=== PATIENT | female | born 1965 ===

== ENCOUNTER 2016-09-27 07:45 | Inpatient (IN) | payer OTHER ==
--- NOTE | 2016-09-26 16:55 | Pre-Procedure Note/Attestation ---
Pre-Procedure Note/Attestation Complete Prior to Procedure Planned Procedure: left Procedure Narrative: Left total knee arthroplasty Indications for Procedure Pre-Operative Diagnosis: Left knee arthritis Attestation I attest that I discussed the nature of the procedure; its benefits; risks and complications; and alternatives (and the risks and benefits of such alternatives ), prior to the procedure, with the patient (or the patient's legal retail account representative). I attest that, if there was a reasonable possibility of needing a blood transfusion, the patient (or the patient's legal retail account representative) was given the [facility] standardized written summary, pursuant to the Sean Peter Blood Safety Act ([place] Health and Safety Code # 1645, as amended). I attest that I re-evaluated the patient just prior to the surgery and that there has been no change in the patient's H&P, except as documented below:NONE MANNY GHOSH Sep 26, 2016 16:55
[~2016-09-27] VITALS: Ht 154.9 cm; Wt 67.1 kg
[2016-09-27] VITALS (19 sets, daily range): BP systolic 89–125; BP diastolic 39–83
[~2016-09-27 07:45] MED LIST: CYMBALTA30 MG ORAL; GABAPENTIN300 MG ORAL; GLUCOSAMINE PO; MULTIVITAMINS1 EAC2 ORAL; ceFAZolin 1gm/50ml Premix 50 ML IV ONE; celeBREX 200mg Cap **SURGERY PATIENTS ONLY ORAL ONE; oxyCONTIN 20mg tab ORAL ONE
[2016-09-27] MEDS ORDERED: Lidocaine 1% MPF 10mg/ml 5ml ONE (08:30)
[2016-09-27] MEDS ORDERED: LR 1000ml ONE (08:30)
[2016-09-27] MEDS ORDERED: Sterile Water For Irrig 2000ml IRRIG ONE (08:30)
[2016-09-27] MEDS ORDERED: Alfentanil 2ml Inj ONE (08:30)
[2016-09-27] MEDS ORDERED: Midazolam 2mg/2ml Inj ONE (08:30)
[2016-09-27] MEDS ORDERED: NS Irrig 1000ml ONE (08:30)
[2016-09-27] MEDS ORDERED: Dexamethasone 4mg/ml vial ONE (08:30)
[2016-09-27] MEDS ORDERED: Propofol 10mg/ml 20ml IV ONE (08:30)
[2016-09-27] MEDS ORDERED: NS Irrig 2000ml IRRIG ONE (08:40)
[2016-09-27] MEDS ORDERED: Bupivacaine 0.5% Inj 30 ml vial INJ ONE (08:40)
[2016-09-27] MEDS ORDERED: Morphine Sulfate PF 10 ML ONE (08:40)
[2016-09-27] MEDS ORDERED: Bacitracin 50000 Units Vial ONE (08:41)
[2016-09-27] MEDS ORDERED: Ropivacaine 5mg/ml Vial 20ml INJ ONE (08:41)
--- NOTE | 2016-09-27 09:31 | Anethesia Preoperative Eval ---
Anesthesia Pre-op PMH/ROS General Date of Evaluation: Sep 27, 2016 Time of Evaluation: 08:31 Anesthesiologist: Charleen ASA Score: ASA 2 Mallampati Score Class I : Soft palate, uvula, fauces, pillars visible Class II: Soft palate, uvula, fauces visible Class III: Soft palate, base of uvula visible Class IV: Only hard plate visible Mallampati Classification: Class II Surgeon: Mikaela Diagnosis: L Knee Pain Surgical Procedure: L Total Knee Arthroplasty Anesthesia History: none Family History: no anesthesia problems Allergies: Coded Allergies: No Known Allergies (Unverified , 09/22/16) Medications: see eMAR Past Medical History Hematology/Immune: Reports: anemia PSxH Narrative: VINI, CSx2, L Knee Arthroscopy Anesthesia Pre-op Phys. Exam Physician Exam Last Vital Signs Date Time Temp Pulse Resp B/P Pulse Ox O2 Delivery O2 Flow Rate FiO2 09/27/16 08:15 98.2 57 16 107/57 100 Room Air Constitutional: NAD Neurologic: CN 2-12 intact Cardiovascular: RRR Respiratory: CTA Gastrointestinal: S/NT/ND Airway Exam Mallampati Score: Class II MO: full ROM: limited Teeth: intact Anesthesia Pre-op A/P Risk Assessment & Plan Assessment: ASA 2 Plan: GA, BIS, Spinal, L Adductor Block Status Change Before Surgery: No Pre-Antibiotics Dru Grams Ancef IV Given Within 1 Hr of Incision: Yes Time Given: 08:53 Abner Villaseñor MD Sep 27, 2016 09:31
[2016-09-27] MEDS ORDERED: LR 1000ml 1,000 ML IVLG SCH (09:33)
--- NOTE | 2016-09-27 09:33 | Immediate Post-Op Evaluation ---
Immediate Post-Op Evalulation Immediate Post-Op Evalulation Procedure: L Total Knee Arthroplasty Date of Evaluation: Sep 27, 2016 Time of Evaluation: 11:58 IV Fluids: 1000 LR Blood Products: 0 Estimated Blood Loss: 50 Urinary Output: 100 Blood Pressure Systolic: 99 Blood Pressure Diastolic: 43 Pulse Rate: 80 Respiratory Rate: 16 O2 Sat by Pulse Oximetry: 100 Temperature (Fahrenheit): 98.3 Pain Score (1-10): 0 Nausea: No Vomiting: No Complications 0 Patient Status: awake, reacts, patent, extubated, none Hydration Status: adequate Dru Grams Ancef IV Given Within 1 Hr of Incision: Yes Time Given: 08:53 Abner Villaseñor MD Sep 27, 2016 09:33
[2016-09-27] MEDS ORDERED: Oxycodone/Acetaminophen 5-325 ORAL PRN (09:45)
[2016-09-27] MEDS ORDERED: fentaNYL 100 mcg/2 mL IV PRN (09:45)
[2016-09-27] MEDS ORDERED: Meperidine 25mg/ml Inj IV PRN (09:45)
[2016-09-27] MEDS ORDERED: Norco 5mg/325mg tab ORAL PRN ×2 (09:45)
[2016-09-27] MEDS ORDERED: HYDROmorphone 1mg/ml Carpuject SUBQ PRN (09:45)
[2016-09-27] MEDS ORDERED: Norco 7.5mg/325mg tab ORAL PRN ×2 (09:45)
[2016-09-27] MEDS ORDERED: Atropine Inj 1mg/10ml Syr IV PRN (09:45)
[2016-09-27] MEDS ORDERED: Ketorolac 60mg Inj IV PRN (09:45)
[2016-09-27] MEDS ORDERED: Metoclopramide 10mg/2ml Inj IVP PRN (09:45)
[2016-09-27] MEDS ORDERED: Midazolam 2mg/2ml Inj IVP PRN (09:45)
[2016-09-27] MEDS ORDERED: LORazepam Inj 2mg/ml 1ml IV PRN (09:45)
[2016-09-27] MEDS ORDERED: Ketorolac 30mg Inj IV PRN (09:45)
[2016-09-27] MEDS ORDERED: Milk of Magnesia 30ml Ud ORAL PRN (09:45)
[2016-09-27] MEDS ORDERED: Hydromorphone 0.5mg/0.5ml inj IVP PRN (09:45)
[2016-09-27] MEDS ORDERED: DiphenhydrAMINE 50mg/ml Inj IVP PRN (09:45)
[2016-09-27] MEDS ORDERED: Labetalol 5mg/ml 20ml vial IV PRN (09:45)
--- NOTE | 2016-09-27 11:32 | Brief Operative Note ---
Immediate Post Operative Note Operative Note Chief Complaint: left knee pain Pre-op Diagnosis: left knee arthritis Procedure: left TKA Post-op Diagnosis: same as pre-op Findings: consistent w/pre-op dx studies Surgeon: md Mikaela Surgical Orderly: geo manuel Anesthesiologist: md stephanie Anesthesia: general Specimen: yes Complications: none Condition: stable Estimated Blood Loss: minimal Drains: none Implant(s) used?: Yes - PAWEL Escalona Sep 27, 2016 11:32
--- NOTE | 2016-09-27 14:31 | Diagnostic Imaging Report ---
Indications: Postoperative Technique: Two views of the knee Comparison:None Findings: Two postoperative views of the left knee demonstrate total knee arthroplasty, good anatomic alignment of the prosthesis. . There is postsurgical soft tissue air. Impression: Postoperative left knee, no unusual features.
[2016-09-27] MEDS: D5 1/2NS w/KCl 20mEq 1,000 ML IV SCH (17:04)
[2016-09-27] MEDS: Docusate 100mg cap ORAL SCH (17:04)
[2016-09-27] MEDS: ceFAZolin sod 1 GM in D5W 55 ML IV SCH (17:06)
[2016-09-27] MEDS: oxyCONTIN 20mg tab ORAL SCH (20:55)
[2016-09-27] MEDS: Enoxaparin 30mg Inj SUBQ SCH (20:59)
--- NOTE | 2016-09-27 23:48 | Operative Note - Dictated ---
DATE OF OPERATION: 09/27/2016 PREOPERATIVE DIAGNOSIS: Left knee end-stage arthritis. POSTOPERATIVE DIAGNOSIS: Left knee end-stage arthritis. PROCEDURE: Left total knee arthroplasty using the [employer] system, size 7 femur, size E tibia, 32 mm patellar all poly cemented component, and 12 mm tibial insert. SURGEON: Kaden Al M.D. REGISTRAR NURSES' REGISTRY: Tammie Moise PA-C. ANESTHESIOLOGIST: Abner Villaseñor M.D. ANESTHESIA: Spinal anesthesia combined with adductor block for postoperative pain management. ESTIMATED BLOOD LOSS: Less than 100 mL. TOURNIQUET TIME: 75 minutes. COMPLICATIONS: None. BRIEF HISTORY: The patient is a pleasant 51-year-old female, who has had ongoing left knee end-stage arthritis. She failed nonoperative treatment and after full discussion of risks and benefits of surgery and complications associated with it including infection, bleeding, neurovascular complication, possibility of continued pain, possibility of need for further surgery, possibility of DVT and PE, possibility of infection requiring resection arthroplasty, and certainly need for revision total knee arthroplasty down the line, she opted for surgical treatment as described above. OPERATIVE PROCEDURE: The patient was brought to the operating table and was placed supine. All pressure points were well padded. Spinal anesthesia was induced and adductor block was performed. The left knee was prepped and draped in usual sterile fashion and was exsanguinated. Tourniquet was inflated to 275 mmHg. Standard anterior approach to the knee was undertaken. Medial parapatellar arthrotomy was performed and the medial releases were performed. The patella was everted. The knee was flexed. ACL and PCL were released. Intramedullary access into the femur was obtained, and using intramedullary guide, a distal femoral cut was performed with 5 degrees of valgus. Subsequently, measurements were made and size 7 appeared to be the right size for the femur. The cutting block was placed in about 3 degrees of external rotation. The anterior, posterior, and chamfer cuts were performed. The knee component was lateralized slightly and peg holes were drilled. The femoral prosthesis was fitting perfectly onto the cuts. Once this was completed, care was given to the tibial side. Appropriate retractors were placed in medially, laterally, and posteriorly and knee was flexed. The patellar tendon was protected. The anatomical axis was re-created and 10 mm was taken off the least involved side, which was posteromedial. This provided excellent cut. Flexion and extension gap was checked and appeared to be equal. The posterior slope was created. Once this was completed, the sizing was performed and size E appeared to be the right size. Therefore, the size E was placed in about 3 degrees of external rotation and the central stem was punched without any complication. At this point, the femoral component, tibial component, and a 10 mm poly was inserted. There was a little hyperextension or looseness of the knee. At this point, the poly was changed to 12 mm. This provided excellent range of motion with full extension, no laxity, full flexion, excellent stability at 0, 30 degrees, 45 degrees, and 90 degrees to varus and valgus stressing and anterior and posterior drawer. Therefore, care was given to the patella. The patella was everted. There were multiple osteophytes and these were removed. At this point, thickness of the patella was measured to be 25 mm. A freehand cut was performed and 14 mm patella was remaining. The measurements were made and 32 mm appeared to be the right size. The peg holes were drilled and a trial component was applied. The range of motion of the knee was checked and patellofemoral tracking was checked and appeared to be perfect. At this point, all wounds were thoroughly irrigated using copious amount of fluid. All trial components were removed. The femoral entry was then plugged using a bone plug. The Simpulse irrigation was used to irrigate the area completely. At this point, cement was mixed and the tibial component, femoral component, and patellar component were cemented without any complication. A 12 mm poly insert was then trialed and appeared to be the correct size with good range of motion, good stability, and good patellofemoral tracking as described previously. Therefore, the actual 12 mm poly was then applied and locked in without any complications. The knee was reduced and range of motion and stability was checked and appeared to be perfect. At this point, all wounds were thoroughly irrigated using copious amount of fluid. The tourniquet was deflated. All bleeders were stopped. The extensor mechanism was closed using #1 Vicryl suture. Subcutaneous tissue was closed using 2-0 Vicryl suture. The skin was closed using 3-0 Monocryl suture and Dermabond. Sterile dressing was applied. The patient was placed in a knee immobilizer and was taken to recovery room in stable condition. All instrument counts and lap counts were correct. Kaden Al M.D. DR: Isaias JOB#: [id number] CC:
[2016-09-28] VITALS: BP 94/57
[2016-09-28] MEDS: ceFAZolin sod 1 GM in D5W 55 ML IV SCH (00:35)
[2016-09-28] MEDS: D5 1/2NS w/KCl 20mEq 1,000 ML IV SCH ×2 (03:59→19:10)
[2016-09-28 04:00] VITALS: BP 106/51
[2016-09-28 07:10] LABS: BASOPHILS % (AUTO) 0.2 % (0.0-2.0); EOSINOPHILS % (AUTO) 0.1 % (0.0-3.0); LYMPHOCYTES % (AUTO) 10.9 % (20.0-45.0); MEAN CORPUSCULAR HEMOGLOBIN 32.3 PG (27.0-31.0); MEAN CORPUSCULAR HGB CONC 36.1 G/DL (32.0-36.0); MEAN CORPUSCULAR VOLUME 89 FL (80-99); MEAN PLATELET VOLUME 7.9 FL (6.5-10.1); MONOCYTES % (AUTO) 9.9 % (1.0-10.0); PLATELET COUNT 210 K/UL (150-450); RED BLOOD COUNT 3.37 M/UL (4.20-5.40); RED CELL DISTRIBUTION WIDTH 11.6 % (11.6-14.8); WHITE BLOOD COUNT 11.5 K/UL (4.8-10.8)
[2016-09-28 08:00] VITALS: BP 101/53
--- NOTE | 2016-09-28 08:05 | Orthopedic Progress Note ---
Orthopedic - Progress Note Subjective Symptoms: improved - some nausea Objective Vital Signs Laboratory Tests Test 09/28/16 05:10 White Blood Count 11.5 K/UL (4.8-10.8) H Red Blood Count 3.37 M/UL (4.20-5.40) L Hemoglobin 10.9 G/DL (12.0-16.0) L Hematocrit 30.1 % (37.0-47.0) L Mean Corpuscular Volume 89 FL (80-99) Mean Corpuscular Hemoglobin 32.3 PG (27.0-31.0) H Mean Corpuscular Hemoglobin Concent 36.1 G/DL (32.0-36.0) H Red Cell Distribution Width 11.6 % (11.6-14.8) Platelet Count 210 K/UL (150-450) Mean Platelet Volume 7.9 FL (6.5-10.1) Neutrophils (%) (Auto) 79.0 % (45.0-75.0) H Lymphocytes (%) (Auto) 10.9 % (20.0-45.0) L Monocytes (%) (Auto) 9.9 % (1.0-10.0) Eosinophils (%) (Auto) 0.1 % (0.0-3.0) Basophils (%) (Auto) 0.2 % (0.0-2.0) Last 24 Hour Vital Signs Date Time Temp Pulse Resp B/P Pulse Ox O2 Delivery O2 Flow Rate FiO2 09/28/16 04:00 98.2 64 18 106/51 98 Room Air 09/28/16 00:00 97.9 51 18 94/57 99 Room Air 09/27/16 20:30 97.2 59 20 97/67 100 Room Air 09/27/16 20:00 97.2 54 18 95/48 Room Air 09/27/16 16:09 Nasal Cannula 3.0 32 09/27/16 16:09 99 Nasal Cannula 3.0 32 09/27/16 16:00 97.3 51 17 92/62 100 Room Air 09/27/16 14:45 97.5 88 16 125/83 100 Nasal Cannula 3.0 09/27/16 14:30 97.2 53 16 101/48 100 Nasal Cannula 3.0 09/27/16 14:15 97.2 61 15 110/55 100 Nasal Cannula 3.0 2/7/17 14:00 97.5 55 15 115/63 100 Nasal Cannula 3.0 09/27/16 13:45 97.7 64 14 103/39 100 Nasal Cannula 3.0 09/27/16 13:20 98.6 53 13 98/50 100 Nasal Cannula 3.0 09/27/16 13:05 54 12 92/43 100 Nasal Cannula 3.0 09/27/16 12:50 56 15 91/45 100 Simple Mask 6.0 09/27/16 12:40 56 15 91/44 100 Simple Mask 6.0 09/27/16 12:29 62 17 92/46 100 Simple Mask 6.0 09/27/16 12:20 56 12 91/44 98 Simple Mask 6.0 09/27/16 12:10 59 13 89/46 98 Simple Mask 6.0 09/27/16 11:57 66 16 96/41 98 Simple Mask 6.0 09/27/16 11:52 66 18 98/46 98 Simple Mask 6.0 09/27/16 11:49 80 16 100 09/27/16 11:47 98.3 80 20 99/43 98 Simple Mask 6.0 09/27/16 08:15 98.2 57 16 107/57 100 Room Air I&O Intake and Output 09/27/16 09/28/16 19:00 07:00 Intake Total 1635 ml 2945 ml Output Total 350 ml 2975 ml Balance 1285 ml -30 ml Intake Oral 380 ml 2120 ml IV Total 1255 ml 825 ml Output Urine Total 200 ml 2225 ml Emesis 100 ml 750 ml Estimated Blood Loss 50 ml # Voids 51 Wound: clean, dry, intact Drains: none Neuro Status: normal Vascular Status: normal Additional Comments xray excellent Assessment Post-op Diagnosis POD 1 Procedure Performed left TKA Plan Plan: PT, pain management, discharge to home - on monday with services and DME PAWEL ATKINSON Sep 28, 2016 08:05
[2016-09-28] MEDS: oxyCONTIN 20mg tab ORAL SCH ×2 (08:43→20:52)
[2016-09-28] MEDS: celeBREX 200mg Cap **SURGERY PATIENTS ONLY ORAL SCH (08:43)
[2016-09-28] MEDS: Docusate 100mg cap ORAL SCH ×3 (08:43→18:00)
[2016-09-28] MEDS: Enoxaparin 30mg Inj SUBQ SCH ×2 (08:48→21:00)
--- NOTE | 2016-09-28 09:16 | General Progress Note ---
Assessment/Plan Status Narrative s/p total knee replacement doing well start cpm soon PT Ot DV TPROPHYAXXIS paincontrol will need perioperative antibiotic prophgyalxis Subjective Date patient seen: Sep 28, 2016 Time patient seen: 09:14 Constitutional: Reports: no symptoms HEENT: Reports: no symptoms Cardiovascular: Reports: no symptoms Respiratory: Reports: no symptoms Gastrointestinal/Abdominal: Reports: no symptoms Allergies: Coded Allergies: Honey Bee (Verified Allergy, Unknown, 09/28/16) Objective Last 24 Hour Vital Signs Date Time Temp Pulse Resp B/P Pulse Ox O2 Delivery O2 Flow Rate FiO2 09/28/16 04:00 98.2 64 18 106/51 98 Room Air 09/28/16 00:00 97.9 51 18 94/57 99 Room Air 09/27/16 20:30 97.2 59 20 97/67 100 Room Air 09/27/16 20:00 97.2 54 18 95/48 Room Air 09/27/16 16:09 Nasal Cannula 3.0 32 09/27/16 16:09 99 Nasal Cannula 3.0 32 09/27/16 16:00 97.3 51 17 92/62 100 Room Air 09/27/16 14:45 97.5 88 16 125/83 100 Nasal Cannula 3.0 09/27/16 14:30 97.2 53 16 101/48 100 Nasal Cannula 3.0 09/27/16 14:15 97.2 61 15 110/55 100 Nasal Cannula 3.0 09/27/16 14:00 97.5 55 15 115/63 100 Nasal Cannula 3.0 09/27/16 13:45 97.7 64 14 103/39 100 Nasal Cannula 3.0 09/27/16 13:20 98.6 53 13 98/50 100 Nasal Cannula 3.0 09/27/16 13:05 54 12 92/43 100 Nasal Cannula 3.0 09/27/16 12:50 56 15 91/45 100 Simple Mask 6.0 09/27/16 12:40 56 15 91/44 100 Simple Mask 6.0 09/27/16 12:29 62 17 92/46 100 Simple Mask 6.0 09/27/16 12:20 56 12 91/44 98 Simple Mask 6.0 09/27/16 12:10 59 13 89/46 98 Simple Mask 6.0 09/27/16 11:57 66 16 96/41 98 Simple Mask 6.0 09/27/16 11:52 66 18 98/46 98 Simple Mask 6.0 09/27/16 11:49 80 16 100 09/27/16 11:47 98.3 80 20 99/43 98 Simple Mask 6.0 Intake and Output 09/27/16 09/28/16 19:00 07:00 Intake Total 1635 ml 2945 ml Output Total 350 ml 2975 ml Balance 1285 ml -30 ml Intake Oral 380 ml 2120 ml IV Total 1255 ml 825 ml Output Urine Total 200 ml 2225 ml Emesis 100 ml 750 ml Estimated Blood Loss 50 ml # Voids 51 Laboratory Tests 09/28/16 05:10: White Blood Count 11.5H, Red Blood Count 3.37L, Hemoglobin 10.9L, Hematocrit 30.1L, Mean Corpuscular Volume 89, Mean Corpuscular Hemoglobin 32.3H, Mean Corpuscular Hemoglobin Concent 36.1H, Red Cell Distribution Width 11.6, Platelet Count 210, Mean Platelet Volume 7.9, Neutrophils (%) (Auto) 79.0H, Lymphocytes (%) (Auto) 10.9L, Monocytes (%) (Auto) 9.9, Eosinophils (%) (Auto) 0.1, Basophils (%) (Auto) 0.2 Height (Feet): 5 Height (Inches): 1.00 Weight (Pounds): 148 General Appearance: WD/WN EENT: PERRL/EOMI Cardiovascular: no JVD Respiratory/Chest: lungs clear Abdomen: soft MALINI CARDENAS Sep 28, 2016 09:16
[2016-09-28 12:00] VITALS: BP 95/45
--- NOTE | 2016-09-28 14:10 | 48 Hour Post Anesthesia Eval ---
Post Anesthesia Evaluation Procedure: L Total Knee Arthroplasty Date of Evaluation: Sep 28, 2016 Time of Evaluation: 14:09 Blood Pressure Systolic: 97 0: 60 Pulse Rate: 76 Respiratory Rate: 20 Temperature (Fahrenheit): 98 O2 Sat by Pulse Oximetry: 98 Airway: patent Nausea: No Vomiting: No Pain Intensity: 2 Hydration Status: adequate Cardiopulmonary Status: stanle Mental Status/LOC: patient returned to baseline Follow-up Care/Observations: na Post-Anesthesia Complications: na Follow-up care needed: N/A JOSE RODRIGEZ M.D. Sep 28, 2016 14:10
[2016-09-28 16:00] VITALS: BP 108/47
[2016-09-28 20:00] VITALS: BP 103/62
[2016-09-28] MEDS: DULoxetine 30mg cap ORAL SCH (20:51)
[2016-09-29] VITALS (7 sets, daily range): BP systolic 89–115; BP diastolic 47–57
[2016-09-29 07:26] LABS: BASOPHILS % (AUTO) 0.4 % (0.0-2.0); EOSINOPHILS % (AUTO) 0.9 % (0.0-3.0); LYMPHOCYTES % (AUTO) 15.3 % (20.0-45.0); MEAN CORPUSCULAR HEMOGLOBIN 30.8 PG (27.0-31.0); MEAN CORPUSCULAR HGB CONC 34.3 G/DL (32.0-36.0); MEAN CORPUSCULAR VOLUME 90 FL (80-99); MEAN PLATELET VOLUME 7.4 FL (6.5-10.1); MONOCYTES % (AUTO) 12.1 % (1.0-10.0); NEUTROPHILS % (AUTO) 71.3 % (45.0-75.0); PLATELET COUNT 180 K/UL (150-450); RED BLOOD COUNT 2.94 M/UL (4.20-5.40); RED CELL DISTRIBUTION WIDTH 11.9 % (11.6-14.8); WHITE BLOOD COUNT 7.3 K/UL (4.8-10.8)
--- NOTE | 2016-09-29 07:30 | Orthopedic Progress Note ---
Orthopedic - Progress Note Subjective Symptoms: c/o post-op knee pain Additional Comments Slow with recovery. Want to be discharge tomorrow. Objective Vital Signs Last 24 Hour Vital Signs Date Time Temp Pulse Resp B/P Pulse Ox O2 Delivery O2 Flow Rate FiO2 09/29/16 04:00 99.0 80 18 104/57 99 Room Air 09/29/16 00:00 99.0 83 18 100/50 98 Room Air 09/28/16 20:00 98.2 80 20 103/62 98 Nasal Cannula 09/28/16 19:12 98 Nasal Cannula 2.0 28 09/28/16 19:12 Nasal Cannula 2.0 28 09/28/16 16:00 98.2 63 20 108/47 99 Room Air 09/28/16 14:10 76 20 98 09/28/16 12:43 98.2 09/28/16 12:00 98.4 66 20 95/45 99 Room Air 09/28/16 08:00 97.9 64 18 101/53 99 Room Air I&O Intake and Output 09/28/16 09/29/16 19:00 07:00 Intake Total 2365 ml 765 ml Output Total 800 ml Balance 1565 ml 765 ml Intake Oral 1540 ml 240 ml IV Total 825 ml 525 ml Output Urine Total 550 ml Emesis 250 ml # Voids 3 Wound: clean, dry, intact Drains: hemovac Neuro Status: normal Assessment Post-op Diagnosis S/P TKA Plan Plan: PT, pain management, discharge plan Additional Comments Ok to go home if stable with home health. If unsafe per PT, then may need Rehab. MANNY GHOSH Sep 29, 2016 07:30
[2016-09-29] MEDS: D5 1/2NS w/KCl 20mEq 1,000 ML IV SCH (08:00)
[2016-09-29] MEDS: Docusate 100mg cap ORAL SCH ×3 (09:09→17:59)
[2016-09-29] MEDS: oxyCONTIN 20mg tab ORAL SCH ×2 (09:09→21:00)
[2016-09-29] MEDS: celeBREX 200mg Cap **SURGERY PATIENTS ONLY ORAL SCH (09:10)
[2016-09-29] MEDS: Enoxaparin 30mg Inj SUBQ SCH ×2 (10:24→22:46)
[2016-09-29] MEDS: DULoxetine 30mg cap ORAL SCH (20:59)
[2016-09-30 00:56] VITALS: BP 93/52
[2016-09-30 04:00] VITALS: BP 98/60
[2016-09-30 04:43] LABS: BASOPHILS % (AUTO) 0.8 % (0.0-2.0); EOSINOPHILS % (AUTO) 2.9 % (0.0-3.0); LYMPHOCYTES % (AUTO) 24.3 % (20.0-45.0); MEAN CORPUSCULAR HEMOGLOBIN 30.4 PG (27.0-31.0); MEAN CORPUSCULAR HGB CONC 33.9 G/DL (32.0-36.0); MEAN CORPUSCULAR VOLUME 90 FL (80-99); MEAN PLATELET VOLUME 7.8 FL (6.5-10.1); MONOCYTES % (AUTO) 9.5 % (1.0-10.0); NEUTROPHILS % (AUTO) 62.6 % (45.0-75.0); PLATELET COUNT 177 K/UL (150-450); RED CELL DISTRIBUTION WIDTH 11.5 % (11.6-14.8); WHITE BLOOD COUNT 6.5 K/UL (4.8-10.8)
[2016-09-30 08:00] VITALS: BP 91/45
--- NOTE | 2016-09-30 08:23 | Orthopedic Progress Note ---
Orthopedic - Progress Note Subjective Symptoms: improved Objective Vital Signs Laboratory Tests Test 09/30/16 04:15 White Blood Count 6.5 K/UL (4.8-10.8) Red Blood Count 2.80 M/UL (4.20-5.40) L Hemoglobin 8.5 G/DL (12.0-16.0) L Hematocrit 25.0 % (37.0-47.0) L Mean Corpuscular Volume 90 FL (80-99) Mean Corpuscular Hemoglobin 30.4 PG (27.0-31.0) Mean Corpuscular Hemoglobin Concent 33.9 G/DL (32.0-36.0) Red Cell Distribution Width 11.5 % (11.6-14.8) L Platelet Count 177 K/UL (150-450) Mean Platelet Volume 7.8 FL (6.5-10.1) Neutrophils (%) (Auto) 62.6 % (45.0-75.0) Lymphocytes (%) (Auto) 24.3 % (20.0-45.0) Monocytes (%) (Auto) 9.5 % (1.0-10.0) Eosinophils (%) (Auto) 2.9 % (0.0-3.0) Basophils (%) (Auto) 0.8 % (0.0-2.0) Last 24 Hour Vital Signs Date Time Temp Pulse Resp B/P Pulse Ox O2 Delivery O2 Flow Rate FiO2 09/30/16 04:00 98.2 74 21 98/60 99 Room Air 09/30/16 00:56 100.2 91 19 93/52 95 Room Air 09/29/16 20:06 Nasal Cannula 2.0 28 09/29/16 20:06 97 Nasal Cannula 2.0 28 09/29/16 20:00 99.7 88 18 115/49 97 Room Air 09/29/16 16:00 97.9 74 17 89/51 94 Room Air 09/29/16 14:15 98.4 09/29/16 13:27 98.4 84 18 90/47 Room Air 97 09/29/16 13:00 98.4 89 18 90/47 Room Air 97 I&O Intake and Output 09/29/16 09/30/16 19:00 07:00 Intake Total 600 ml 240 ml Balance 600 ml 240 ml Intake Oral 600 ml 240 ml # Voids 4 9 Wound: clean, dry, intact Drains: none Neuro Status: normal Vascular Status: normal Assessment Post-op Diagnosis POD 3 Procedure Performed left TKA Plan Plan: discharge to home - services, DME, meds. f/u Dr Cheek 7-12 days, other - ordered 1 unit PRBCs prior to d/c for drop in H&H PAWEL ATKINSON Sep 30, 2016 08:23
[2016-09-30] MEDS: Docusate 100mg cap ORAL SCH ×2 (08:59→13:11)
[2016-09-30] MEDS: celeBREX 200mg Cap **SURGERY PATIENTS ONLY ORAL SCH (09:00)
[2016-09-30] MEDS: oxyCONTIN 20mg tab ORAL SCH (09:00)
[2016-09-30] MEDS: Enoxaparin 30mg Inj SUBQ SCH (09:01)
[2016-09-30 12:00] VITALS: BP 94/51
[2016-09-30 12:28] LABS: BASOPHILS % (AUTO) 0.6 % (0.0-2.0); EOSINOPHILS % (AUTO) 2.7 % (0.0-3.0); LYMPHOCYTES % (AUTO) 23.3 % (20.0-45.0); MEAN CORPUSCULAR HEMOGLOBIN 29.5 PG (27.0-31.0); MEAN CORPUSCULAR HGB CONC 33.1 G/DL (32.0-36.0); MEAN CORPUSCULAR VOLUME 89 FL (80-99); MEAN PLATELET VOLUME 7.2 FL (6.5-10.1); MONOCYTES % (AUTO) 8.8 % (1.0-10.0); NEUTROPHILS % (AUTO) 64.5 % (45.0-75.0); PLATELET COUNT 228 K/UL (150-450); RED BLOOD COUNT 3.21 M/UL (4.20-5.40); RED CELL DISTRIBUTION WIDTH 11.4 % (11.6-14.8)
[2016-09-30 12:49] LABS: ALANINE AMINOTRANSFERASE 18 U/L (3-33); ALBUMIN/GLOBULIN RATIO 1.1 (1.0-2.7); ANION GAP 14 (5-15); ASPARTATE AMINO TRANSFERASE 26 U/L (5-40); CALCIUM 9.4 mg/dL (8.6-10.2); CARBON DIOXIDE 28 mEQ/L (20-30); CHLORIDE 99 mEQ/L (98-107); CREATININE 0.5 mg/dL (0.5-0.9); GLOMERULAR FILTRATION RATE > 60 mL/min (>60); HEMOLYSIS 2; POTASSIUM 3.9 mEQ/L (3.4-4.9); SODIUM 141 mEQ/L (135-145); TOTAL PROTEIN 6.3 g/dL (6.6-8.7)
--- NOTE | 2016-09-30 14:33 | Diagnostic Imaging Report ---
Indication: Cough Technique: One view of the chest Comparison: none Findings: Lungs and pleural spaces are clear. Heart size is normal. Impression: No acute process
[2016-09-30] MEDS ORDERED: Tubing IV Secondary IV ONE (15:09)
--- NOTE | 2016-10-01 02:29 | Discharge Summary 2 SIG ---
DATE OF ADMISSION: 09/27/2016 DATE OF DISCHARGE: 09/30/2016 HOSPITAL COURSE: The patient is a very pleasant 51-year-old female, who was admitted with left knee arthritis after left total knee arthroplasty. The patient tolerated the procedure well and had a benign hospital course. She did require 1 unit of blood prior to discharge due to her drop in hemoglobin and hematocrit. She was seen by Physical Therapy. She was ambulating well at the time of discharge and pain was well controlled and she was tolerating a good oral diet. The patient is being discharged home with home nursing, home physical therapy, home DME, and all home medications. We are to follow up with her in 7 to 10 days for continued outpatient care. She can be weightbearing as tolerated. Continue with CPM machine and continue the use of Lovenox for full 14 days postoperative. Tia Em I have been assigned to dictate discharge summary on this account and I was not involved in the patient's management. Kaden Al M.D. DR: YANI/trevor JOB#: [id number] CC:
== END 2016-09-30 15:10 | disposition home health service (06) | DRG 470 ==
LOC: SDSOVERFLO 07:45 → 3E 13:50
PROC: 0SRD0J9 Replacement of Left Knee Joint with Synthetic Substitute, Cemented, Open Approach (ICD-10-PCS; principal; 2016-09-27 09:30)
DX: M17.12 Unilateral primary osteoarthritis, left knee (principal); D64.9 Anemia, unspecified
CPT/HCPCS: 36415; 71010; 80053; 85025; 86850; 86900; 86901; 86920; 87040; 87081; 87086; 94003; 94150; 94760; J2250; J2405; J3490

== ENCOUNTER 2017-02-07 05:23 | Inpatient (IN) | payer OTHER ==
[2017-02-07] VITALS (14 sets, daily range): BP systolic 87–108; BP diastolic 38–68
[~2017-02-07] VITALS: Ht 152.4 cm; Wt 67.1 kg
[~2017-02-07 05:23] MED LIST changes: +FISH OIL 500 M1 EAC1 PO; -ceFAZolin 1gm/50ml Premix 50 ML IV ONE; -celeBREX 200mg Cap **SURGERY PATIENTS ONLY ORAL ONE; -oxyCONTIN 20mg tab ORAL ONE
[2017-02-07] MEDS ORDERED: ceFAZolin 1gm in D5W 55ml IVP ONE (06:00)
[2017-02-07] MEDS ORDERED: celeBREX 200mg Cap **SURGERY PATIENTS ONLY ORAL ONE ×2 (06:00→06:26)
[2017-02-07] MEDS ORDERED: oxyCONTIN 20mg tab ORAL ONE (06:00)
[2017-02-07] MEDS ORDERED: ceFAZolin 1gm in D5W 55ml IVPB ONE (06:00)
--- NOTE | 2017-02-07 06:24 | Anethesia Preoperative Eval ---
Anesthesia Pre-op PMH/ROS General Date of Evaluation: Feb 07, 2017 Anesthesiologist: Gregory ASA Score: ASA 2 Mallampati Score Class I : Soft palate, uvula, fauces, pillars visible Class II: Soft palate, uvula, fauces visible Class III: Soft palate, base of uvula visible Class IV: Only hard plate visible Mallampati Classification: Class II Surgeon: Mikaela Diagnosis: Right knee osteoarthritis Surgical Procedure: Right total knee replacement Anesthesia History: none Family History: no anesthesia problems Allergies: Coded Allergies: Honey Bee (Verified Allergy, Unknown, 09/28/16) ACETAMINOPHEN (Verified Adverse Reaction, Severe, 02/06/17) NAUSEA AND VOMITING HYDROCODONE (Verified Adverse Reaction, Severe, 02/06/17) NAUSEA AND VOMITING Medications: see eMAR Past Medical History Cardiovascular: Denies: CAD, HTN, ME, arrhythmia, other, valve dz Pulmonary: Denies: COPD, AMANDA, asthma, other Gastrointestinal/Genitourinary: Denies: CRI, ESRD, GERD, other Neurologic/Psychiatric: Denies: CVA, TIA, dementia, depression/anxiety, other Endocrine: Denies: DM, hypothyroidism, other, steroids HEENT: Denies: GAMBELL (L), GAMBELL (R), cataract (L), cataract (R), glaucoma, other Hematology/Immune: Reports: anemia - chronic, Denies: DVT, bleeding disorder, other Musculoskeletal/Integumentary: Reports: OA, Denies: DDD, DJD, RA, edema, other PSxH Narrative: VINI, c/s, left TKR Anesthesia Pre-op Phys. Exam Physician Exam see chart Constitutional: NAD Cardiovascular: RRR Respiratory: CTA Airway Exam Mallampati Score: Class II MO: full ROM: full Teeth: intact Anesthesia Pre-op A/P Labs see chart Studies Pre-op Studies: EKG - sr Risk Assessment & Plan Assessment: ASA II Plan: SAB with GA Status Change Before Surgery: No Pre-Antibiotics Drug: Ancef 2g Given Within 1 Hr of Incision: Yes Time Given: 07:15 ZACH SCHILLING M.D. Feb 07, 2017 06:24
[2017-02-07] MEDS ORDERED: LR 1000ml 1,000 ML IV SCH (06:30)
[2017-02-07] MEDS ORDERED: Duramorph PF 5mg/10ml amp ONE (06:38)
[2017-02-07] MEDS ORDERED: Bacitracin 50000 Units Vial ONE ×2 (06:39→06:46)
--- NOTE | 2017-02-07 06:54 | Pre-Procedure Note/Attestation ---
Pre-Procedure Note/Attestation Complete Prior to Procedure Planned Procedure: right Procedure Narrative: rt TKA Indications for Procedure Pre-Operative Diagnosis: rt knee arthritis Attestation I attest that I discussed the nature of the procedure; its benefits; risks and complications; and alternatives (and the risks and benefits of such alternatives ), prior to the procedure, with the patient (or the patient's legal insurance healthcare representative). I attest that, if there was a reasonable possibility of needing a blood transfusion, the patient (or the patient's legal insurance healthcare representative) was given the [facility] standardized written summary, pursuant to the Sean Peter Blood Safety Act ([place] Health and Safety Code # 1645, as amended). I attest that I re-evaluated the patient just prior to the surgery and that there has been no change in the patient's H&P, except as documented below:NONE MANNY GHOSH Feb 07, 2017 06:54
[2017-02-07] MEDS ORDERED: Nimbex 2mg/ml Inj 10ML IVP ONE (07:00)
[2017-02-07] MEDS ORDERED: Propofol 10mg/ml 20ml IV ONE (07:00)
[2017-02-07] MEDS ORDERED: Dexamethasone 4mg/ml vial ONE (07:00)
[2017-02-07] MEDS ORDERED: Midazolam 2mg/2ml Inj ONE (07:00)
[2017-02-07] MEDS ORDERED: LR 1000ml ONE (07:00)
[2017-02-07] MEDS ORDERED: Lidocaine 1% MPF 10mg/ml 5ml ONE (07:00)
[2017-02-07] MEDS ORDERED: NS Irrig 1000ml ONE (07:00)
[2017-02-07] MEDS ORDERED: Ketamine 500mg Inj ONE (07:00)
[2017-02-07] MEDS ORDERED: Sterile Water Irrig 1000ml IRRIG ONE (07:00)
[2017-02-07] MEDS ORDERED: Metoclopramide 10mg/2ml Inj ONE (07:00)
[2017-02-07] MEDS ORDERED: HYDROmorphone 1mg/ml Carpuject SUBQ PRN (07:15)
[2017-02-07] MEDS ORDERED: Milk of Magnesia 30ml Ud ORAL PRN (07:15)
[2017-02-07] MEDS ORDERED: LR 1000ml 1,000 ML IVLG SCH (07:42)
[2017-02-07] MEDS ORDERED: Midazolam 2mg/2ml Inj IVP PRN (07:45)
[2017-02-07] MEDS ORDERED: DiphenhydrAMINE 50mg/ml Inj IVP PRN (07:45)
[2017-02-07] MEDS ORDERED: LORazepam Inj 2mg/ml 1ml IV PRN (07:45)
[2017-02-07] MEDS ORDERED: fentaNYL 100 mcg/2 mL IV PRN (07:45)
[2017-02-07] MEDS ORDERED: Metoclopramide 10mg/2ml Inj IVP PRN (07:45)
[2017-02-07] MEDS ORDERED: Hydromorphone 0.5mg/0.5ml inj IVP PRN (07:45)
--- NOTE | 2017-02-07 09:23 | Brief Operative Note ---
Immediate Post Operative Note Operative Note Chief Complaint: rt knee pain Pre-op Diagnosis: rt knee arthritis Procedure: rt tka Post-op Diagnosis: same as pre-op Findings: consistent w/pre-op dx studies Surgeon: md hyacinth Network Field Engineer: geo manuel Anesthesiologist: md horacio Anesthesia: general Specimen: yes Complications: none Condition: stable Estimated Blood Loss: minimal Drains: none Implant(s) used?: Yes - cr and nephew PAWEL MANUEL Feb 07, 2017 09:23
--- NOTE | 2017-02-07 09:37 | Immediate Post-Op Evaluation ---
Immediate Post-Op Evalulation Immediate Post-Op Evalulation Procedure: Right total knee arthroplasty Date of Evaluation: Feb 07, 2017 Time of Evaluation: 09:35 IV Fluids: 2L Blood Products: 0 Estimated Blood Loss: 150 Urinary Output: 300 Blood Pressure Systolic: 94 Blood Pressure Diastolic: 50 Pulse Rate: 86 Respiratory Rate: 15 O2 Sat by Pulse Oximetry: 100 Temperature (Fahrenheit): 98.2 Pain Score (1-10): 0 Nausea: No Vomiting: No Complications 0 Patient Status: awake, reacts, patent, none Hydration Status: adequate Drug: Ancef 2g Given Within 1 Hr of Incision: Yes Time Given: 07:15 ZACH SCHILLING M.D. Feb 07, 2017 09:37
[2017-02-07 10:43] LABS: BASOPHILS % (AUTO) 0.5 % (0.0-2.0); EOSINOPHILS % (AUTO) 0.3 % (0.0-3.0); LYMPHOCYTES % (AUTO) 14.8 % (20.0-45.0); MEAN CORPUSCULAR HEMOGLOBIN 29.7 PG (27.0-31.0); MEAN CORPUSCULAR HGB CONC 33.4 G/DL (32.0-36.0); MEAN CORPUSCULAR VOLUME 89 FL (80-99); MEAN PLATELET VOLUME 6.5 FL (6.5-10.1); NEUTROPHILS % (AUTO) 82.4 % (45.0-75.0); PLATELET COUNT 238 K/UL (150-450); RED CELL DISTRIBUTION WIDTH 12.3 % (11.6-14.8); WHITE BLOOD COUNT 9.8 K/UL (4.8-10.8)
[2017-02-07] MEDS: D5 1/2NS w/KCl 20mEq 1,000 ML IV SCH ×2 (12:00→23:11)
[2017-02-07] MEDS: Docusate 100mg cap ORAL SCH ×3 (13:00→17:29)
--- NOTE | 2017-02-07 13:57 | Diagnostic Imaging Report ---
Indication: POST-OP Technique: 2 views of the right knee Comparison: None Findings:There is a knee prosthesis in good position. Satisfactory anatomic alignment. Retained air from the surgical exposure is seen within the soft tissues Impression:Postoperative right knee. No unusual features
[2017-02-07] MEDS: ceFAZolin sod 1 GM in D5W 55 ML IV SCH ×2 (14:08→23:11)
--- NOTE | 2017-02-07 17:30 | Operative Note - Dictated ---
DATE OF OPERATION: 02/07/2017 PREOPERATIVE DIAGNOSIS: Right knee end-stage arthritis. POSTOPERATIVE DIAGNOSIS: Right knee end-stage arthritis. PROCEDURE: Right total knee arthroplasty using [employer] II size 5 narrow femur, size 4 tibial plate, size 13 mm ultra cross-linked poly, and size 32 patella, all cemented. SURGEON: Kaden Al M.D. CLERK ANALYST: Tammie Moise PA-C ANESTHESIOLOGIST: Saranya Jenkins M.D. ANESTHESIA: General LMA anesthesia. EBL: Less than 200 mL. TOURNIQUET TIME: 70 minutes. COMPLICATIONS: None. BRIEF HISTORY: The patient is a pleasant 51-year-old female who has had ongoing right knee end-stage arthritis. She underwent left total knee arthroplasty successfully and she did very well with it. After full discussion of risks and benefits of surgery and complications associated with it including infection, bleeding, neurovascular complication, possibility of malalignment, possibility of loss of range of motion, possibility of DVT, PE, and other complications that may arise after surgery, she opted for surgical treatment as described above. DESCRIPTION OF PROCEDURE: The patient was brought to the operating room table and was placed supine. All pressure points were well padded. General LMA anesthesia was induced, and the right knee was prepped and draped in the usual sterile fashion. The right leg was exsanguinated and tourniquet was inflated to 275 mmHg. A standard anterior incision in the knee was undertaken. A medial parapatellar arthrotomy was performed. The patella was everted. Deep fibers of MCL were released. The ACL and PCL were then resected. Intramedullary access into the femur was obtained, and the distal femoral cut was performed with 5 degrees of valgus. At this point, a sizing guide was placed. The size 5 appeared to be right size. Therefore, a size 5 cutting block was then placed in 5 degrees of external rotation, and anterior, posterior, and chamfer cuts were performed without any complications. At this point, trialing was performed and size 5 narrow appeared to be the right size. The central air box tester was used to cut out the box in the center. The knee was placed through range of motion with excellent range of motion of the knee. At this point, care was given to the tibial side. The osteophytes of the tibia was removed. The mediolateral meniscus was resected. The retractors were placed posteriorly, medially, and laterally to protect the vital structures. The anterior tibial crest was then marked and using the tibial crest as a guide, extramedullary guide was applied and slope was recreated. 3 mm was taken off the most involved side, which was the medial side. At this point, a tibial cut was performed without any complications. Measurements were made and size 4 appeared to be the right size for tibia. Size 4 tibial trial was applied and was placed in about 3 degrees of external rotation and was pinned down. At this point, the central PEG was drilled and punched out. At this point, trialing was performed with 11 and 13 mm poly. The 13 mm poly provided full extension, full flexion with excellent stability at 0, 30 degrees, 45 degrees, and 90 degrees of flexion with varus and valgus stressing as well as anterior posterior drawer testing. Wounds were thoroughly irrigated using copious amount of fluid. Care was given to the patella. At this time, patellar osteophytes were removed. Patellar thickness was measured to be 24 mm. At this point, a standard patellar cut was performed and 14 mm patella was remaining. Sizing was performed and 32 mm patella appeared to be the right size. The PEG holes for the 32 mm patella were then drilled without any complications. At this point, the patellar trial was applied and there was excellent fit. At this point, the femoral component, tibial component and the 13 mm poly as well as 32 mm patella were then all trialed. There was excellent range of motion and stability as described previously and there was excellent patellofemoral tracking. At this point, all trial components were removed and knee was thoroughly irrigated using copious amount of fluid. Bone was placed into the femoral canal to prevent bleeding. Cement was mixed. Tibial component, femoral component, and patellar components were all cemented without any complications. All excess cement was removed before and after irrigation. At this point, trialing was performed and 13 mm poly appeared to be the right size. At this point, a 13 mm poly was then locked in without any complication. It was assured the locking mechanism engaged very well. Range of motion, stability, and patellofemoral tracking was checked for the last time and it was excellent. There were no loose fragments or loose cement pieces. The knee was thoroughly irrigated. The tourniquet was deflated and there was minimal bleeding and the small bleeders were cauterized. The extensor mechanism was closed using #1 Vicryl suture and subcutaneous tissue was closed using 2-0 Vicryl suture. Skin was closed using 3-0 Monocryl suture. Sterile dressing was applied. The patient was taken to recovery room in stable condition. All lap counts and instrument counts were correct. Kaden Al M.D. DR: MOOK JOB#: [id number] CC:
--- NOTE | 2017-02-07 20:02 | General Progress Note ---
Assessment/Plan Assessment/Plan s/p tkr perioperative blood loss pt ot dvt prophyalxis pain control. follow cbc Subjective Date patient seen: Feb 07, 2017 Time patient seen: 20:00 HEENT: Reports: no symptoms Cardiovascular: Reports: no symptoms Respiratory: Reports: no symptoms Allergies: Coded Allergies: Honey Bee (Verified Allergy, Unknown, 09/28/16) ACETAMINOPHEN (Verified Adverse Reaction, Severe, 02/06/17) NAUSEA AND VOMITING HYDROCODONE (Verified Adverse Reaction, Severe, 02/06/17) NAUSEA AND VOMITING Subjective has knee pain better than last surgery Objective Last 24 Hour Vital Signs Date Time Temp Pulse Resp B/P Pulse Ox O2 Delivery O2 Flow Rate FiO2 02/07/17 17:28 Nasal Cannula 2.0 28 02/07/17 17:28 99 Nasal Cannula 2.0 28 02/07/17 16:00 96.6 69 16 91/53 98 Nasal Cannula 2.0 02/07/17 11:00 97.3 72 16 93/55 94 Nasal Cannula 2.0 02/07/17 10:35 98.5 70 15 107/64 100 Nasal Cannula 3.0 02/07/17 10:20 65 11 94/50 100 Nasal Cannula 3.0 02/07/17 10:05 63 18 95/50 100 Nasal Cannula 3.0 02/07/17 09:50 66 14 90/42 100 Simple Mask 6.0 02/07/17 09:40 65 16 87/42 100 Simple Mask 6.0 02/07/17 09:37 86 15 100 02/07/17 09:35 72 13 94/40 100 Simple Mask 6.0 02/07/17 09:30 98.2 81 18 90/38 100 Simple Mask 6.0 02/07/17 06:41 98.1 60 20 108/68 98 Room Air Laboratory Tests 02/07/17 10:35: White Blood Count 9.8, Red Blood Count 3.70L, Hemoglobin 11.0L, Hematocrit 32.9L , Mean Corpuscular Volume 89, Mean Corpuscular Hemoglobin 29.7, Mean Corpuscular Hemoglobin Concent 33.4, Red Cell Distribution Width 12.3, Platelet Count 238, Mean Platelet Volume 6.5, Neutrophils (%) (Auto) 82.4H, Lymphocytes ( %) (Auto) 14.8L, Monocytes (%) (Auto) 2.0, Eosinophils (%) (Auto) 0.3, Basophils (%) (Auto) 0.5 Height (Feet): 5 Height (Inches): 0.00 Weight (Pounds): 148 General Appearance: WD/WN Neck: non-tender Cardiovascular: no JVD Respiratory/Chest: lungs clear Abdomen: soft Extremities: other - no clubbing MALINI CARDENAS Feb 07, 2017 20:02
[2017-02-07] MEDS: oxyCONTIN 20mg tab ORAL SCH ×2 (21:00→21:10)
[2017-02-07] MEDS: Enoxaparin 30mg Inj SUBQ SCH (21:00)
[2017-02-08] VITALS (8 sets, daily range): BP systolic 91–143; BP diastolic 42–69
[2017-02-08 06:17] LABS: BASOPHILS % (AUTO) 0.3 % (0.0-2.0); EOSINOPHILS % (AUTO) 0.2 % (0.0-3.0); LYMPHOCYTES % (AUTO) 13.1 % (20.0-45.0); MEAN CORPUSCULAR HEMOGLOBIN 30.5 PG (27.0-31.0); MEAN CORPUSCULAR HGB CONC 34.2 G/DL (32.0-36.0); MEAN CORPUSCULAR VOLUME 89 FL (80-99); MEAN PLATELET VOLUME 6.9 FL (6.5-10.1); MONOCYTES % (AUTO) 9.4 % (1.0-10.0); PLATELET COUNT 185 K/UL (150-450); RED BLOOD COUNT 3.08 M/UL (4.20-5.40); RED CELL DISTRIBUTION WIDTH 12.5 % (11.6-14.8); WHITE BLOOD COUNT 10.7 K/UL (4.8-10.8)
--- NOTE | 2017-02-08 08:18 | Orthopedic Progress Note ---
Orthopedic - Progress Note Subjective Symptoms: improved - doing excellent. walking with PT Objective Vital Signs Laboratory Tests Test 02/07/17 10:35 02/08/17 05:30 White Blood Count 9.8 K/UL (4.8-10.8) 10.7 K/UL (4.8-10.8) Red Blood Count 3.70 M/UL (4.20-5.40) L 3.08 M/UL (4.20-5.40) L Hemoglobin 11.0 G/DL (12.0-16.0) L 9.4 G/DL (12.0-16.0) L Hematocrit 32.9 % (37.0-47.0) L 27.5 % (37.0-47.0) L Mean Corpuscular Volume 89 FL (80-99) 89 FL (80-99) Mean Corpuscular Hemoglobin 29.7 PG (27.0-31.0) 30.5 PG (27.0-31.0) Mean Corpuscular Hemoglobin Concent 33.4 G/DL (32.0-36.0) 34.2 G/DL (32.0-36.0) Red Cell Distribution Width 12.3 % (11.6-14.8) 12.5 % (11.6-14.8) Platelet Count 238 K/UL (150-450) 185 K/UL (150-450) Mean Platelet Volume 6.5 FL (6.5-10.1) 6.9 FL (6.5-10.1) Neutrophils (%) (Auto) 82.4 % (45.0-75.0) H 77.0 % (45.0-75.0) H Lymphocytes (%) (Auto) 14.8 % (20.0-45.0) L 13.1 % (20.0-45.0) L Monocytes (%) (Auto) 2.0 % (1.0-10.0) 9.4 % (1.0-10.0) Eosinophils (%) (Auto) 0.3 % (0.0-3.0) 0.2 % (0.0-3.0) Basophils (%) (Auto) 0.5 % (0.0-2.0) 0.3 % (0.0-2.0) Last 24 Hour Vital Signs Date Time Temp Pulse Resp B/P Pulse Ox O2 Delivery O2 Flow Rate FiO2 02/08/17 08:08 97.5 64 20 143/69 100 Room Air 02/08/17 05:33 61 98/49 02/08/17 04:00 97.7 58 19 93/61 100 Room Air 02/08/17 02:34 97.3 02/08/17 02:00 60 18 103/52 02/08/17 00:24 97.3 62 18 91/42 98 Room Air 02/07/17 21:10 17 96/49 99 Room Air 02/07/17 20:00 97.3 63 18 91/57 100 Room Air 02/07/17 20:00 Nasal Cannula 2.0 28 02/07/17 20:00 97 Nasal Cannula 2.0 28 02/07/17 19:40 102/57 02/07/17 17:28 Nasal Cannula 2.0 28 02/07/17 17:28 99 Nasal Cannula 2.0 28 02/07/17 16:00 96.6 69 16 91/53 98 Nasal Cannula 2.0 02/07/17 11:00 97.3 72 16 93/55 94 Nasal Cannula 2.0 02/07/17 10:35 98.5 70 15 107/64 100 Nasal Cannula 3.0 02/07/17 10:20 65 11 94/50 100 Nasal Cannula 3.0 02/07/17 10:05 63 18 95/50 100 Nasal Cannula 3.0 02/07/17 09:50 66 14 90/42 100 Simple Mask 6.0 02/07/17 09:40 65 16 87/42 100 Simple Mask 6.0 02/07/17 09:37 86 15 100 02/07/17 09:35 72 13 94/40 100 Simple Mask 6.0 02/07/17 09:30 98.2 81 18 90/38 100 Simple Mask 6.0 I&O Intake and Output 02/07/17 02/08/17 19:00 07:00 Intake Total 3150 ml 1185 ml Output Total 700 ml 450 ml Balance 2450 ml 735 ml Intake Oral 200 ml 360 ml IV Total 2950 ml 825 ml Output Urine Total 550 ml 450 ml Estimated Blood Loss 150 ml # Voids 1 Wound: clean, dry, intact Drains: none Neuro Status: normal Vascular Status: normal Assessment Post-op Diagnosis POD 1 Procedure Performed rt tka Plan Plan: PT, discharge plan - home with services and DME. Possibly tomorrow or Monday. follow H&H tomorrow PAWEL ATKINSON Feb 08, 2017 08:18
[2017-02-08] MEDS: oxyCONTIN 20mg tab ORAL SCH ×2 (08:45→21:14)
[2017-02-08] MEDS: Docusate 100mg cap ORAL SCH ×3 (08:46→17:34)
[2017-02-08] MEDS: Enoxaparin 30mg Inj SUBQ SCH ×2 (08:48→21:11)
--- NOTE | 2017-02-08 08:50 | General Progress Note ---
Assessment/Plan Assessment/Plan s/p toal knee replacement perioperative bloodloss post op hct today is 27 follow closley pt ot dvt prophyalxis paincontrol yu rachel [facility]celinopreet [facility]let[facility]. Subjective Date patient seen: Feb 08, 2017 Time patient seen: 08:48 Constitutional: Reports: no symptoms Allergies: Coded Allergies: Honey Bee (Verified Allergy, Unknown, 09/28/16) ACETAMINOPHEN (Verified Adverse Reaction, Severe, 02/06/17) NAUSEA AND VOMITING HYDROCODONE (Verified Adverse Reaction, Severe, 02/06/17) NAUSEA AND VOMITING Subjective doing ok has some pain no nausea no vomiting now Objective Last 24 Hour Vital Signs Date Time Temp Pulse Resp B/P Pulse Ox O2 Delivery O2 Flow Rate FiO2 02/08/17 08:08 97.5 64 20 143/69 100 Room Air 02/08/17 05:33 61 98/49 02/08/17 04:00 97.7 58 19 93/61 100 Room Air 02/08/17 02:34 97.3 02/08/17 02:00 60 18 103/52 02/08/17 00:24 97.3 62 18 91/42 98 Room Air 02/07/17 21:10 17 96/49 99 Room Air 02/07/17 20:00 97.3 63 18 91/57 100 Room Air 02/07/17 20:00 Nasal Cannula 2.0 28 02/07/17 20:00 97 Nasal Cannula 2.0 28 02/07/17 19:40 102/57 02/07/17 17:28 Nasal Cannula 2.0 28 02/07/17 17:28 99 Nasal Cannula 2.0 02/07/17 16:00 96.6 69 16 91/53 98 Nasal Cannula 2.0 02/07/17 11:00 97.3 72 16 93/55 94 Nasal Cannula 2.0 02/07/17 10:35 98.5 70 15 107/64 100 Nasal Cannula 3.0 02/07/17 10:20 65 11 94/50 100 Nasal Cannula 3.0 02/07/17 10:05 63 18 95/50 100 Nasal Cannula 3.0 02/07/17 09:50 66 14 90/42 100 Simple Mask 6.0 02/07/17 09:40 65 16 87/42 100 Simple Mask 6.0 02/07/17 09:37 86 15 100 02/07/17 09:35 72 13 94/40 100 Simple Mask 6.0 02/07/17 09:30 98.2 81 18 90/38 100 Simple Mask 6.0 Intake and Output 02/07/17 02/08/17 19:00 07:00 Intake Total 3150 ml 1185 ml Output Total 700 ml 450 ml Balance 2450 ml 735 ml Intake Oral 200 ml 360 ml IV Total 2950 ml 825 ml Output Urine Total 550 ml 450 ml Estimated Blood Loss 150 ml # Voids 1 Laboratory Tests 02/07/17 10:35: White Blood Count 9.8, Red Blood Count 3.70L, Hemoglobin 11.0L, Hematocrit 32.9L , Mean Corpuscular Volume 89, Mean Corpuscular Hemoglobin 29.7, Mean Corpuscular Hemoglobin Concent 33.4, Red Cell Distribution Width 12.3, Platelet Count 238, Mean Platelet Volume 6.5, Neutrophils (%) (Auto) 82.4H, Lymphocytes ( %) (Auto) 14.8L, Monocytes (%) (Auto) 2.0, Eosinophils (%) (Auto) 0.3, Basophils (%) (Auto) 0.5 02/08/17 05:30: White Blood Count 10.7, Red Blood Count 3.08L, Hemoglobin 9.4L, Hematocrit 27.5L , Mean Corpuscular Volume 89, Mean Corpuscular Hemoglobin 30.5, Mean Corpuscular Hemoglobin Concent 34.2, Red Cell Distribution Width 12.5, Platelet Count 185, Mean Platelet Volume 6.9, Neutrophils (%) (Auto) 77.0H, Lymphocytes ( %) (Auto) 13.1L, Monocytes (%) (Auto) 9.4, Eosinophils (%) (Auto) 0.2, Basophils (%) (Auto) 0.3 Height (Feet): 5 Height (Inches): 0.00 Weight (Pounds): 148 General Appearance: WD/WN Neck: non-tender Cardiovascular: normal rate, regular rhythm, no JVD Respiratory/Chest: lungs clear Abdomen: soft Extremities: other - no edema MALINI CARDENAS Feb 08, 2017 08:50
[2017-02-08] MEDS: celeBREX 200mg Cap **SURGERY PATIENTS ONLY ORAL SCH (09:00)
[2017-02-08] MEDS ORDERED: celeBREX 200mg Cap **SURGERY PATIENTS ONLY ORAL SCH (09:00)
--- NOTE | 2017-02-08 12:04 | 48 Hour Post Anesthesia Eval ---
Post Anesthesia Evaluation Procedure: Right total knee arthroplasty Date of Evaluation: Feb 08, 2017 Time of Evaluation: 07:00 Blood Pressure Systolic: 98 0: 49 Pulse Rate: 61 Respiratory Rate: 19 Temperature (Fahrenheit): 97.7 O2 Sat by Pulse Oximetry: 97 Airway: patent Nausea: No Vomiting: No Pain Intensity: 2 Hydration Status: adequate Cardiopulmonary Status: at baseline Mental Status/LOC: patient returned to baseline Post-Anesthesia Complications: 0 Follow-up care needed: N/A - further care as per primary team ZACH SCHILLING M.D. Feb 08, 2017 12:04
[2017-02-08] MEDS: D5 1/2NS w/KCl 20mEq 1,000 ML IV SCH (14:31)
[2017-02-08] MEDS: oxyCODONE 5mg IR tab ORAL PRN (18:47)
[2017-02-09] VITALS: BP 112/50
[2017-02-09] MEDS: oxyCODONE 5mg IR tab ORAL PRN ×4 (01:14→13:54)
[2017-02-09 04:00] VITALS: BP 102/53
[2017-02-09] MEDS: D5 1/2NS w/KCl 20mEq 1,000 ML IV SCH ×2 (05:00→18:20)
--- NOTE | 2017-02-09 07:53 | Orthopedic Progress Note ---
Orthopedic - Progress Note Subjective Symptoms: c/o post-op knee pain Additional Comments walking with the walker. some pain as expected, but controlled with meds. Objective Vital Signs Last 24 Hour Vital Signs Date Time Temp Pulse Resp B/P Pulse Ox O2 Delivery O2 Flow Rate FiO2 02/09/17 07:45 Room Air 02/09/17 07:45 95 02/09/17 04:00 98.2 81 16 102/53 95 Room Air 02/09/17 00:00 98.2 75 16 112/50 99 Room Air 02/08/17 20:22 Room Air 02/08/17 20:21 95 Room Air 02/08/17 20:00 98.2 79 18 119/57 98 Room Air 02/08/17 15:56 98.9 69 20 112/58 95 Room Air 02/08/17 15:02 98.1 02/08/17 12:25 98.1 61 20 114/46 98 Room Air 02/08/17 12:04 61 19 97 02/08/17 09:42 Nasal Cannula 2.0 28 02/08/17 09:42 98 Nasal Cannula 2.0 28 02/08/17 08:08 97.5 64 20 143/69 100 Room Air I&O Intake and Output 02/08/17 02/09/17 19:00 07:00 Intake Total 1867.5 ml 315 ml Output Total 1100 ml Balance 767.5 ml 315 ml Intake Oral 1080 ml 240 ml IV Total 787.5 ml 75 ml Output Urine Total 800 ml Emesis 300 ml # Voids 4 3 Wound: clean, dry Drains: none Neuro Status: normal Vascular Status: normal Assessment Post-op Diagnosis S/p right TKA doing well Plan Plan: PT, pain management, discharge plan, discharge to home Additional Comments Dressing changes Discharge tomorrow follow up with me in 2 weeks Home PT MANNY GHOSH Feb 09, 2017 07:53
[2017-02-09 07:57] LABS: BASOPHILS % (AUTO) 0.6 % (0.0-2.0); LYMPHOCYTES % (AUTO) 27.4 % (20.0-45.0); MEAN CORPUSCULAR HEMOGLOBIN 31.6 PG (27.0-31.0); MEAN CORPUSCULAR HGB CONC 34.8 G/DL (32.0-36.0); MEAN CORPUSCULAR VOLUME 91 FL (80-99); MEAN PLATELET VOLUME 7.4 FL (6.5-10.1); MONOCYTES % (AUTO) 9.6 % (1.0-10.0); NEUTROPHILS % (AUTO) 60.3 % (45.0-75.0); PLATELET COUNT 216 K/UL (150-450); RED BLOOD COUNT 3.05 M/UL (4.20-5.40); RED CELL DISTRIBUTION WIDTH 12.2 % (11.6-14.8); WHITE BLOOD COUNT 6.9 K/UL (4.8-10.8)
[2017-02-09] MEDS: Enoxaparin 30mg Inj SUBQ SCH ×2 (08:16→20:33)
[2017-02-09] MEDS: Docusate 100mg cap ORAL SCH ×3 (08:17→17:22)
[2017-02-09] MEDS: oxyCONTIN 20mg tab ORAL SCH ×2 (08:17→20:22)
[2017-02-09] MEDS: celeBREX 200mg Cap **SURGERY PATIENTS ONLY ORAL SCH (08:18)
[2017-02-09 08:21] VITALS: BP 117/54
[2017-02-09 11:55] VITALS: BP 109/57
[2017-02-09] MEDS ORDERED: Tubing IV Secondary IV ONE (15:28)
[2017-02-09 15:58] VITALS: BP 102/51
[2017-02-09 20:00] VITALS: BP 109/55
[2017-02-10] VITALS: BP 109/84
[2017-02-10 04:00] VITALS: BP 107/55
[2017-02-10 06:36] LABS: BASOPHILS % (AUTO) 0.8 % (0.0-2.0); EOSINOPHILS % (AUTO) 4.6 % (0.0-3.0); MEAN CORPUSCULAR HEMOGLOBIN 30.9 PG (27.0-31.0); MEAN CORPUSCULAR HGB CONC 34.2 G/DL (32.0-36.0); MEAN CORPUSCULAR VOLUME 90 FL (80-99); MEAN PLATELET VOLUME 7.2 FL (6.5-10.1); MONOCYTES % (AUTO) 9.3 % (1.0-10.0); NEUTROPHILS % (AUTO) 56.2 % (45.0-75.0); PLATELET COUNT 220 K/UL (150-450); RED BLOOD COUNT 3.09 M/UL (4.20-5.40); RED CELL DISTRIBUTION WIDTH 12.3 % (11.6-14.8); WHITE BLOOD COUNT 6.4 K/UL (4.8-10.8)
[2017-02-10 06:54] LABS: ANION GAP 13 (5-15); CALCIUM 9.3 mg/dL (8.6-10.2); CARBON DIOXIDE 26 mEQ/L (20-30); CHLORIDE 98 mEQ/L (98-107); CREATININE 0.7 mg/dL (0.5-0.9); GLOMERULAR FILTRATION RATE > 60 mL/min (>60); HEMOLYSIS 2; POTASSIUM 3.7 mEQ/L (3.4-4.9); SODIUM 137 mEQ/L (135-145)
[2017-02-10 08:00] VITALS: BP 108/69
--- NOTE | 2017-02-10 08:21 | Orthopedic Progress Note ---
Orthopedic - Progress Note Subjective Symptoms: improved Objective Vital Signs Laboratory Tests Test 02/10/17 05:25 White Blood Count 6.4 K/UL (4.8-10.8) Red Blood Count 3.09 M/UL (4.20-5.40) L Hemoglobin 9.6 G/DL (12.0-16.0) L Hematocrit 27.9 % (37.0-47.0) L Mean Corpuscular Volume 90 FL (80-99) Mean Corpuscular Hemoglobin 30.9 PG (27.0-31.0) Mean Corpuscular Hemoglobin Concent 34.2 G/DL (32.0-36.0) Red Cell Distribution Width 12.3 % (11.6-14.8) Platelet Count 220 K/UL (150-450) Mean Platelet Volume 7.2 FL (6.5-10.1) Neutrophils (%) (Auto) 56.2 % (45.0-75.0) Lymphocytes (%) (Auto) 29.0 % (20.0-45.0) Monocytes (%) (Auto) 9.3 % (1.0-10.0) Eosinophils (%) (Auto) 4.6 % (0.0-3.0) H Basophils (%) (Auto) 0.8 % (0.0-2.0) Sodium Level 137 mEQ/L (135-145) Potassium Level 3.7 mEQ/L (3.4-4.9) Chloride Level 98 mEQ/L (98-107) Carbon Dioxide Level 26 mEQ/L (20-30) Anion Gap 13 (5-15) Blood Urea Nitrogen 9 mg/dL (7-23) Creatinine 0.7 mg/dL (0.5-0.9) Estimat Glomerular Filtration Rate > 60 mL/min (>60) Glucose Level 99 mg/dL (74-106) Calcium Level 9.3 mg/dL (8.6-10.2) Last 24 Hour Vital Signs Date Time Temp Pulse Resp B/P Pulse Ox O2 Delivery O2 Flow Rate FiO2 02/10/17 08:00 98.4 87 20 108/69 97 Room Air 02/10/17 04:19 91.0 02/10/17 04:00 98.2 55 20 107/55 96 Room Air 02/10/17 00:00 100.4 92 20 109/84 98 Room Air 02/09/17 20:00 99.0 93 18 109/55 99 Room Air 02/09/17 19:26 Room Air 02/09/17 19:26 96 Room Air 02/09/17 15:58 97.3 79 20 102/51 100 Room Air 02/09/17 11:55 97.4 78 20 109/57 96 Room Air I&O Intake and Output 02/09/17 02/10/17 19:00 07:00 Intake Total 1825 ml Balance 1825 ml Intake Oral 1000 ml IV Total 825 ml # Voids 3 Wound: clean, dry, intact Drains: none Neuro Status: normal Vascular Status: normal Assessment Post-op Diagnosis POD 3 Procedure Performed rt tka Plan Plan: discharge to home - fu in 2 weeks PAWEL ATIKNSON Feb 10, 2017 08:21
[2017-02-10] MEDS: oxyCONTIN 20mg tab ORAL SCH (08:35)
[2017-02-10] MEDS: Docusate 100mg cap ORAL SCH ×2 (08:35→12:38)
[2017-02-10] MEDS: celeBREX 200mg Cap **SURGERY PATIENTS ONLY ORAL SCH (08:35)
[2017-02-10] MEDS: Enoxaparin 30mg Inj SUBQ SCH (08:37)
[2017-02-10 12:00] VITALS: BP 104/57
[2017-02-10 16:00] VITALS: BP 102/53
--- NOTE | 2017-02-11 03:15 | Discharge Summary 2 SIG ---
DATE OF ADMISSION: 02/07/2017 DATE OF DISCHARGE: 02/10/2017 HISTORY AND HOSPITAL COURSE: The patient is a very pleasant 51-year-old female, who was admitted after right total knee arthroplasty. She had a benign hospital stay requiring no blood transfusions. She was ambulating well on day of discharge with stable vital signs, stable laboratory work, pain well controlled on oral medication, and a good oral diet. She is being discharged today on 02/10/2017 to home with home services and DME. The patient has all home medication prescriptions and has a followup appointment in the office on 02/17/2017. On date of discharge, the patient is ambulating well with a walker. She was neurovascularly intact with the right lower extremity. Her dressing was clean, dry, and intact. We will follow up with her in two weeks' time for postoperative management. Kaden Al M.D. I have been assigned to dictate discharge summary on this account and I was not involved in the patient's management. Tia Em DR: Baldemar JOB#: [id number] CC:
== END 2017-02-10 17:11 | disposition home health service (06) | DRG 470 ==
LOC: SDSOVERFLO 05:23 → 3E 11:00
PROC: 0SRC0J9 Replacement of Right Knee Joint with Synthetic Substitute, Cemented, Open Approach (ICD-10-PCS; principal; 2017-02-07 07:00)
DX: M17.11 Unilateral primary osteoarthritis, right knee (principal); Z88.6 Allergy status to analgesic agent
CPT/HCPCS: 36415; 80048; 85025; 86850; 86900; 86901; 86920; 87081; 94003; 94150; 94760; J2250; J2405; J2765